=== PATIENT | female | born 1985 | race Hispanic/Latino ===

== ENCOUNTER → 2025-02-16 08:16 | Outpatient (REF) | payer OTHER, SELFPAY ==
[2025-02-16 09:09] LABS: Hematocrit 37.1 % (37.0-47.0); Hemoglobin 11.3 g/dL (12.0-16.0); Mean Corp Hgb Conc. 30.5 g/dL (33.0-37.0); Mean Corpuscular Hgb 21.8 pg (27.0-31.0); Mean Corpuscular Volume 71.5 fL (81.0-99.0); Platelet Count 226 10^3/uL (130-400); Red Blood Cell Count 5.19 10^6/uL (4.20-5.40); Red Cell Dist. Width 18.7 % (11.5-14.5); White Blood Cell Count 5.4 10^3/uL (4.8-10.8)
[2025-02-16 10:04] LABS: ALT (SGPT) 21 U/L (0-35); AST (SGOT) 20 U/L (14-36); Albumin 4.4 g/dl (3.5-5.0); Alkaline Phosphatase 101 U/L (38-126); Blood Urea Nitrogen 14 mg/dl (7-17); Calcium 9.1 mg/dl (8.4-10.2); Carbon Dioxide 25 mmol/L (22-30); Chloride 108 mmol/L (98-107); Glucose 98 mg/dl (70-99); HDL Cholesterol 55 mg/dl; LDL Cholesterol, Calculated 134 mg/dl; Potassium 4.4 mmol/L (3.5-5.1); Sodium 141 mmol/L (135-145); Total Bilirubin 0.4 mg/dl (0.2-1.3); Total Cholesterol 207 mg/dl (50-199); Total Protein 7.4 g/dl (6.3-8.2); Triglyceride 90 mg/dl (10-149); Very Low Density Lipoprotein 18 mg/dl (0-30); eGFR > 60.00
[2025-02-16 10:07] LABS: Vitamin D, 25-OH*** 23.5 ng/mL (30-80)
[2025-02-16 10:21] LABS: TSH Reflex To Free T4 0.64 uIU/ml (0.47-4.68)
[2025-02-16 10:25] LABS: Ferritin 8.4 ng/ml (6.24-137)
[2025-02-16 10:33] LABS: Iron 46 ug/dl (37-170)
[2025-02-16 10:40] LABS: Vitamin B12 626 pg/ml (239-931)
[2025-02-16 10:43] LABS: Percent Saturation 13 % (20-50); Total Iron Binding Capacity 339 ug/dl (265-497)
[2025-02-16 11:20] LABS: Glycohemoglobin (HgbA1c) 5.8 % (4.0-5.6)
== END ==
LOC: CLINIC 08:16
PROVIDERS: ATTENDING PHYSICIAN Nurse Practitioner Adult Health
DX: D50.9 Iron deficiency anemia, unspecified (principal); Z00.00 Encounter for general adult medical examination without abnormal findings; R73.03 Prediabetes; E55.9 Vitamin D deficiency, unspecified
CPT/HCPCS: 36415; 80053; 80061; 82306; 82607; 82728; 83036; 83540; 83550; 84443; 85027